=== PATIENT | female | born 1995 | race Hispanic/Latino ===

== ENCOUNTER 2016-12-16 15:24 | Emergency (ER) | payer SELFPAY ==
[2016-12-16 15:24] VITALS: BMI 28.2
[2016-12-16 15:37] VITALS: RESP 18
--- NOTE | 2016-12-16 16:00 | ED PDOC ---
Arrival/HPI - General Chief Complaint: Abdominal Pain Time Seen by Provider: 12/16/16 15:28 Historian: Patient - History of Present Illness Narrative History of Present Illness (Text): 12/16/16 15:57 21yo female present with complaint of suprapubic and left sided back pain since this morning. States she had similar symptoms, when she was treated for Pyelonephritis. Admits to dysuria and urinary frequency. Denies fever, chills, hematuria, any other complaint. Past Medical History - Provider Review Nursing Documentation Reviewed: Yes - Past History Past History: No Previous - Infectious Disease Hx of Infectious Diseases: None - Tetanus Immunization Tetanus Immunization: Unknown - Reproductive Menopause: No - Past Medical History Past Medical History: No Previous - Renal Hx Pyelonephritis: Yes - Musculoskeletal/Rheumatological Hx Falls: No - Psychiatric Hx Depression: No Hx Emotional Abuse: No Hx Physical Abuse: No Hx Substance Use: No - Past Surgical History Past Surgical History: No Previous - Anesthesia Hx Anesthesia: No Hx Anesthesia Reactions: No Hx Malignant Hyperthermia: No - Suicidal Assessment Feels Threatened In Home Enviroment: No Family/Social History - Physician Review Nursing Documentation Reviewed: Yes Family/Social History: Unknown Family HX Smoking Status: Current Some Days Smoker Hx Alcohol Use: Yes Hx Substance Use: No Hx Substance Use Treatment: No Allergies/Home Meds Allergies/Adverse Reactions: Allergies No Known Allergies Allergy (Verified 05/11/15 02:13) Review of Systems - Physician Review All systems were reviewed & negative as marked: Yes - Review of Systems Constitutional: Normal Eyes: Normal ENT: Normal Respiratory: Normal Cardiovascular: Normal Gastrointestinal: Abdominal Pain. absent: Constipation, Diarrhea, Nausea, Vomiting, Hematemesis Genitourinary Female: Normal Musculoskeletal: Back Pain Skin: Normal Neurological: Normal Endocrine: Normal Hemo/Lymphatic: Normal Psychiatric: Normal Physical Exam Vital Signs Reviewed: Yes Vital Signs Temp Pulse Resp BP Pulse Ox 12/16/16 16:50 98.0 F 58 L 18 121/68 97 12/16/16 15:33 97.9 F 56 L 18 122/70 100 Temperature: Afebrile Blood Pressure: Normal Pulse: Regular Respiratory Rate: Normal Appearance: Positive for: Well-Appearing, Non-Toxic, Comfortable Pain Distress: None Mental Status: Positive for: Alert and Oriented X 3 - Systems Exam Head: Present: Atraumatic, Normocephalic Pupils: Present: PERRL Extroacular Muscles: Present: EOMI Conjunctiva: Present: Normal Mouth: Present: Moist Mucous Membranes Neck: Present: Normal Range of Motion Respiratory/Chest: Present: Clear to Auscultation, Good Air Exchange. No: Respiratory Distress, Accessory Muscle Use Cardiovascular: Present: Regular Rate and Rhythm, Normal S1, S2. No: Murmurs Abdomen: Present: Normal Bowel Sounds. No: Tenderness, Distention, Peritoneal Signs, Rebound, Guarding, McBurney's Point Tender, Rovsing's Sign Present Back: Present: CVA Tenderness (Left CVAT) Upper Extremity: Present: Normal Inspection. No: Cyanosis, Edema Lower Extremity: Present: Normal Inspection. No: Edema Neurological: Present: GCS=15, CN II-XII Intact, Speech Normal Skin: Present: Warm, Dry, Normal Color. No: Rashes Psychiatric: Present: Alert, Oriented x 3, Normal Insight, Normal Concentration Medical Decision Making ED Course and Treatment: 12/17/16 01:06 PT presented for stated history. She was afebrile and comfortable in ED. UA was negative. Pt was treated with pyridium and ibuprofen for her symptoms and C home with same medications. Referred to her PMD. Advised TRT ED for any new or worsening symptoms. - Lab Interpretations Lab Results: Lab Results 12/16/16 16:00: Urine Color Yellow, Urine Appearance Clear, Urine pH 6.0, Ur Specific Industry <= 1.005, Urine Protein Negative, Urine Glucose (UA) Negative, Urine Ketones Negative, Urine Blood Negative, Urine Nitrate Negative, Urine Bilirubin Negative, Urine Urobilinogen 0.2, Ur Leukocyte Esterase Negative - Medication Orders Current Medication Orders: Discontinued Medications Ibuprofen (Motrin Tab) 600 mg PO STAT STA Stop: 12/16/16 16:56 Last Admin: 12/16/16 17:08 Dose: 600 MG MAR Pain/Vitals Document 12/16/16 17:08 SF (Rec: 12/16/16 17:08 SF [id number] Pain Reassessment Is This A Pain ReAssessment? No Presence of Pain Presence of Pain No Pain Scale Used Pain Scale Used Numeric Phenazopyridine HCl (Pyridium) 200 mg PO STAT STA Stop: 12/16/16 16:56 Last Admin: 12/16/16 17:07 Dose: 200 MG Disposition/Present on Arrival - Present on Arrival Any Indicators Present on Arrival: No History of DVT/PE: No History of Uncontrolled Diabetes: No Urinary Catheter: No History of Decub. Ulcer: No History Surgical Site Infection Following: None - Disposition Have Diagnosis and Disposition been Completed?: Yes Diagnosis: Dysuria Disposition: HOME/ ROUTINE Disposition Time: 16:55 Patient Plan: Discharge Patient Problems: Current Active Problems Problem Status Diagnosed Pyelonephritis Acute Condition: STABLE Discharge Instructions (ExitCare): Dysuria (ED) Additional Instructions: Take medication as directed Drink plenty of fluid and take cranberry supplement follow up with your doctor Return to ED for any new or worsening symptoms Prescriptions: Ibuprofen [Motrin Tab] 600 mg PO Q6 #20 tab Phenazopyridine [Pyridium] 200 mg PO PC #6 tab Referrals: Juan Morse MD [Primary Care Provider] - Follow up with primary Forms: WORK NOTE
[2016-12-16 16:13] LABS: URINE BILIRUBIN NEGATIVE (NEGATIVE); URINE BLOOD NEGATIVE (NEGATIVE); URINE GLUCOSE (UA) NEGATIVE (NEGATIVE); URINE KETONE NEGATIVE (NEGATIVE); URINE LEUKOCYTE ESTERASE NEGATIVE Leu/uL (NEGATIVE); URINE PROTEIN NEGATIVE mg/dL (<30 mg/dL); URINE UROBILINOGEN 0.2 E.U./dL (<1 E.U./dL)
[2016-12-16 16:14] LABS: URINE APPEARANCE CLEAR (CLEAR); URINE COLOR YELLOW (YELLOW)
[2016-12-16 16:51] VITALS: BP 121/68; PULSE 58; TEMP 98; O2SAT 97
== END 2016-12-16 17:15 | disposition home or self-care (01) ==
LOC: ED 15:24
DX: R30.0 Dysuria (principal)

== ENCOUNTER 2017-07-26 10:27 | Emergency (ER) | payer MEDICAID, OTHER ==
[2017-07-26 10:27] VITALS: BMI 28.2
[2017-07-26 10:48] VITALS: BP 109/62; PULSE 67; RESP 16; TEMP 99.3; O2SAT 97
--- NOTE | 2017-07-26 10:54 | ED PDOC ---
Arrival/HPI - General Historian: Patient - History of Present Illness Time/Duration: Other (1 day) Context: Home <Trish Abbott P - Last Filed: 07/26/17 10:50> <Reji Clemens P - Last Filed: 07/26/17 14:22> - General Chief Complaint: ENT Problem Time Seen by Provider: 07/26/17 10:50 - History of Present Illness Narrative History of Present Illness (Text): 07/26/17 10:50 This 21 yo female present to this ED c/o sore throat since last night. Patient stated sore throat worsen this morning. She stated she "knows" she has Strep, and she is requesting ABX. Patient denies sob, cp, abdominal pain, , urinary symptoms, or abnormal gait. (Trish Abbott) Past Medical History - Provider Review Nursing Documentation Reviewed: Yes - Past History Past History: No Previous - Infectious Disease Hx of Infectious Diseases: None - Tetanus Immunization Tetanus Immunization: Unknown - Reproductive Menopause: No - Past Medical History Past Medical History: No Previous - HEENT Other/Comment: STREP THROAT - Renal Hx Pyelonephritis: Yes - Musculoskeletal/Rheumatological Hx Falls: No - Psychiatric Hx Depression: No Hx Emotional Abuse: No Hx Physical Abuse: No Hx Substance Use: No - Past Surgical History Past Surgical History: No Previous - Anesthesia Hx Anesthesia: No Hx Anesthesia Reactions: No Hx Malignant Hyperthermia: No - Suicidal Assessment Feels Threatened In Home Enviroment: No <Trish Abbott P - Last Filed: 07/26/17 10:50> Family/Social History - Physician Review Nursing Documentation Reviewed: Yes Family/Social History: Other (noncontributory) Smoking Status: Current Some Days Smoker Hx Alcohol Use: Yes Hx Substance Use: No Hx Substance Use Treatment: No <Trish Abbott P - Last Filed: 07/26/17 10:50> Allergies/Home Meds <Trish Abbott P - Last Filed: 07/26/17 10:50> <Reji Clemens P - Last Filed: 07/26/17 14:22> Allergies/Adverse Reactions: Allergies No Known Allergies Allergy (Verified 05/11/15 02:13) Review of Systems - Review of Systems Constitutional: Normal. absent: Fatigue, Weight Change, Fevers, Night Sweats Eyes: Normal ENT: Sore Throat. absent: Rhinorrhea, Epistaxis, Sinus Congestion Respiratory: Normal. absent: SOB, Cough, Sputum Cardiovascular: Normal. absent: Chest Pain Gastrointestinal: Normal. absent: Abdominal Pain, Nausea, Vomiting Genitourinary Female: Normal. absent: Dysuria, Frequency Musculoskeletal: Normal Skin: Normal. absent: Rash Neurological: Normal. absent: Headache, Dizziness, Focal Weakness, Gait Changes , Speech Changes Endocrine: Normal Hemo/Lymphatic: Normal Psychiatric: Normal <Abbott,Nah P - Last Filed: 07/26/17 10:50> Physical Exam Temperature: Afebrile Blood Pressure: Normal Pulse: Regular Respiratory Rate: Normal Appearance: Positive for: Well-Appearing, Non-Toxic, Comfortable Pain Distress: None Mental Status: Positive for: Alert and Oriented X 3 - Systems Exam Head: Present: Atraumatic, Normocephalic Pupils: Present: PERRL Extroacular Muscles: Present: EOMI Conjunctiva: Present: Normal Mouth: Present: Moist Mucous Membranes Pharnyx: Present: ERYTHEMA, EXUDATE, TONSILS ENLARGED. No: Peritonsilar Swelling, Uvular Deviation, Muffled/Hoarse Voice, Strider, Soft Palate/Uvular Edema Nose (External): Present: Atraumatic Nose (Internal): Present: Normal Inspection. No: Rhinorrhea Neck: Present: Normal Range of Motion Respiratory/Chest: Present: Clear to Auscultation, Good Air Exchange. No: Respiratory Distress, Accessory Muscle Use Cardiovascular: Present: Regular Rate and Rhythm, Normal S1, S2. No: Murmurs Abdomen: Present: Normal Bowel Sounds. No: Tenderness, Distention, Peritoneal Signs Back: Present: Normal Inspection Upper Extremity: Present: Normal Inspection. No: Cyanosis, Edema Lower Extremity: Present: Normal Inspection. No: Edema Neurological: Present: GCS=15, CN II-XII Intact, Speech Normal Skin: Present: Warm, Dry, Normal Color. No: Rashes Psychiatric: Present: Alert, Oriented x 3, Normal Insight, Normal Concentration <Abbott,Nahim P - Last Filed: 07/26/17 10:50> Vital Signs Temp Pulse Resp BP Pulse Ox 07/26/17 10:42 99.3 F 67 16 109/62 97 Medical Decision Making Re-evaluation Time: 10:56 Reassessment Condition: Re-examined, Improved <Trish Abbott P - Last Filed: 07/26/17 10:50> <Reji Clemens P - Last Filed: 07/26/17 14:22> ED Course and Treatment: 07/26/17 10:56 Re-evaluation. Patient feels better. Discussed results and plan with patient who expresses understanding. All questions answered and there is agreement with the plan to discharge home with instructions. Patient stable for discharge. Return if symptoms persist or worsen. Patient prefers ABX, and refused to have Strep test. (Trish Abbott) - PA / WIG STYLIST / Resident Statement MD/DO has reviewed & agrees with the documentation as recorded. <Reji Clemens - Last Filed: 07/26/17 14:22> Disposition/Present on Arrival - Present on Arrival Any Indicators Present on Arrival: No History of DVT/PE: No History of Uncontrolled Diabetes: No Urinary Catheter: No History of Decub. Ulcer: No History Surgical Site Infection Following: None - Disposition Have Diagnosis and Disposition been Completed?: Yes Disposition Time: 10:57 Patient Plan: Discharge <Trish Abbott P - Last Filed: 07/26/17 10:50> - Present on Arrival Any Indicators Present on Arrival: No History of DVT/PE: No History of Uncontrolled Diabetes: No Urinary Catheter: No History of Decub. Ulcer: No History Surgical Site Infection Following: None - Disposition Have Diagnosis and Disposition been Completed?: Yes Patient Plan: Discharge <Reji Clemens P - Last Filed: 07/26/17 14:22> - Disposition Diagnosis: Pharyngitis Disposition: HOME/ ROUTINE Condition: GOOD Discharge Instructions (ExitCare): Pharyngitis (ED) Additional Instructions: Call private doctor for follow up visit visit in 1-2 days. Take medication as instructed. Drink enough fluids. Return to emergency if symptoms worsen. Prescriptions: Amoxicillin [Amoxil 500 mg Cap] 500 mg PO TID #30 cap Referrals: [facility] [Outside] - Follow up with primary [facility] [Outside] - Follow up with primary Forms: [employer] (Green[place]ic), WORK NOTE
== END 2017-07-26 11:08 | disposition home or self-care (01) ==
LOC: ED 10:27
DX: J02.9 Acute pharyngitis, unspecified (principal); F17.200 Nicotine dependence, unspecified, uncomplicated